=== PATIENT | female | born 2000 ===

== ENCOUNTER 2018-03-11 11:01 | Emergency (ER) | payer OTHER ==
[2018-03-11 11:47] VITALS: RESP 20
[2018-03-11 12:00] VITALS: BP 127/52; PULSE 79; TEMP 98.1; O2SAT 99
--- NOTE | 2018-03-11 12:20 | ED PDOC ---
HPI: General Adult Time Seen by Provider: 03/11/18 11:19 Chief Complaint (Nursing): Abdominal Pain Chief Complaint (Provider): Abdominal Pain History Per: Patient History/Exam Limitations: no limitations Onset/Duration Of Symptoms: Days (prior to arrival) Have you had recent travel within the past 21 days to any of the following countries: [place], [place], [place] or [place]?: No Current Symptoms Are (Timing): Still Present Severity: None Additional Complaint(s): 17 year old female presents to the ED for evaluation after moving to the [facility] from [place] and experiencing an irregular menstrual cycle. Patient has no medical complaints otherwise. PMD: none provided Past Medical History Reviewed: Historical Data, Nursing Documentation, Vital Signs Vital Signs: Last Vital Signs Temp 98.1 F 03/11/18 11:59 Pulse 79 03/11/18 11:59 Resp 20 03/11/18 11:59 BP 127/52 L 03/11/18 11:59 Pulse Ox 99 03/11/18 12:28 - Medical History PMH: No Chronic Diseases - Surgical History Surgical History: No Surg Hx - Family History Family History: States: Unknown Family Hx - Allergies Allergies/Adverse Reactions: Allergies Allergy/AdvReac Type Severity Reaction Status Date / Time No Known Allergies Allergy Verified 03/11/18 11:44 Review of Systems ROS Statement: Except As Marked, All Systems Reviewed And Found Negative Genitourinary Female: Positive for: Other (irregular menstrual cycle) Physical Exam - Reviewed Nursing Documentation Reviewed: Yes Vital Signs Reviewed: Yes - Physical Exam Appears: Positive for: Non-toxic, No Acute Distress Head Exam: Positive for: ATRAUMATIC, NORMAL INSPECTION, NORMOCEPHALIC Skin: Positive for: Normal Color, Warm, Dry Eye Exam: Positive for: EOMI, Normal appearance, PERRL Neck: Positive for: Normal, Painless ROM Cardiovascular/Chest: Positive for: Regular Rate, Rhythm Respiratory: Positive for: CNT, Normal Breath Sounds Gastrointestinal/Abdominal: Positive for: Normal Exam, Soft Extremity: Positive for: Normal ROM. Negative for: Deformity Neurologic/Psych: Positive for: Alert, Oriented (x 3) - ECG O2 Sat by Pulse Oximetry: 99 (RA) Pulse Ox Interpretation: Normal Medical Decision Making Medical Decision Making: Time: 11:49 Initial Plan: --Urine preg Scribe Attestation: Documented by Liss Huff, acting as a scribe for Valeri Lebron MD Provider Scribe Attestation: All medical record entries made by the Scribe were at my direction and personally dictated by me. I have reviewed the chart and agree that the record accurately reflects my personal performance of the history, physical exam, medical decision making, and the department course for this patient. I have also personally directed, reviewed, and agree with the discharge instructions and disposition. Disposition - Clinical Impression Clinical Impression: Irregular menses - Disposition Referrals: [facility] [Outside] Instructions: Absent or Irregular Periods Forms: [facility] ([place]) Print Language: [id number]
== END 2018-03-11 13:20 | disposition home or self-care (01) ==
LOC: H.ER 11:01
DX: N92.6 Irregular menstruation, unspecified (principal)